=== PATIENT | male | born 1995 | race African-American/Black ===

== ENCOUNTER 2021-07-18 05:48 | Emergency (ER) | payer MEDICARE, OTHER ==
[~2021-07-18] VITALS: Ht 165.1 cm; Wt 72.6 kg
[2021-07-18] MEDS ORDERED: DEPAKOTE250 MG PO (06:10)
[2021-07-18 07:30] VITALS: BP 131/62
== END 2021-07-18 07:30 | disposition home or self-care (01) ==
LOC: M.ERS 05:48 → EDBD 05:48 → M.ERS 07:30
DX: T69.9XXA Effect of reduced temperature, unspecified, initial encounter (principal); Z79.899 Other long term (current) drug therapy

== ENCOUNTER 2021-07-24 22:53 | Emergency (ER) | payer MEDICARE, MEDICAID ==
[~2021-07-24] VITALS: Ht 172.7 cm; Wt 81.7 kg
[~2021-07-24 22:53] MED LIST: DEPAKOTE250 MG PO
[2021-07-25 01:05] VITALS: BP 132/66
== END 2021-07-25 01:05 | disposition home or self-care (01) ==
LOC: M.ERS 22:53
DX: T69.8XXA Other specified effects of reduced temperature, initial encounter (principal); X31.XXXA Exposure to excessive natural cold, initial encounter; Y93.89 Activity, other specified; Y92.89 Other specified places as the place of occurrence of the external cause; Y99.8 Other external cause status

== ENCOUNTER 2021-07-29 08:16 | Emergency (ER) | payer MEDICARE, OTHER, MEDICAID | END 2021-07-29 08:40 | disposition left against medical advice (07) | LOC: M.ERS 08:16 | DX: Z74.2 Need for assistance at home and no other household member able to render care (principal); Z53.21 Procedure and treatment not carried out due to patient leaving prior to being seen by health care provider ==